=== PATIENT | female | born 1960 | race Caucasian/White ===

== ENCOUNTER → 2017-07-16 | Outpatient (CLI) | payer MEDICARE ==
[~2017-07-16] MED LIST: NORCO 325 MG-7.1 TAB PO; PEPCID 20MG TAB20 MG PO; PERCOCET 500 MG1 TAB PO; PHENERGAN 25 TA25 MG PO; PHENERGAN25 MG RC; acid reflux
== END ==
LOC: MC.RAD 14:50
DX: N63.10 Unspecified lump in the right breast, unspecified quadrant (principal)

== ENCOUNTER → 2017-07-22 | Outpatient (CLI) | payer MEDICARE | LOC: MC.RAD 07:30 | DX: N63.10 Unspecified lump in the right breast, unspecified quadrant (principal) ==

== ENCOUNTER → 2017-08-12 | Outpatient (CLI) | payer MEDICARE | LOC: MC.RAD 13:52 | DX: N64.4 Mastodynia (principal); C50.411 Malignant neoplasm of upper-outer quadrant of right female breast ==

== ENCOUNTER → 2017-08-20 | Outpatient (CLI) | payer MEDICARE ==
[~2017-08-20] MED LIST changes: +AMBIEN 10MG10 MG PO; +ASPIRIN 81M81 MG/TA2 PO; +COLACE 100100 MG/CAP PO; +CYMBALTA 60MG60 MG PO; +GLUCOPHAGE500 MG/TAB PO; +LATUDA60 MG PO; +MOTRIN 600600 MG/TAB PO; +PERCOCET 325 MG1 TA2 PO; +PRINIVIL2.5 MG PO; +PROZAC40 MG PO; +REQUIP0.25 MG PO
== END ==
LOC: COL.RAD 09:37
DX: C50.911 Malignant neoplasm of unspecified site of right female breast (principal)
CPT/HCPCS: A9541

== ENCOUNTER 2017-08-21 06:41 | Day surgery (SDC) | payer MEDICARE ==
[2017-08-21] VITALS (11 sets, daily range): BP systolic 118–179; BP diastolic 51–114; PULSE 78–101; TEMP 98–98.5
[~2017-08-21] VITALS: Ht 170.2 cm; Wt 117.2 kg
[~2017-08-21 06:41] MED LIST changes: -AMBIEN 10MG10 MG PO; -ASPIRIN 81M81 MG/TA2 PO; -COLACE 100100 MG/CAP PO; -CYMBALTA 60MG60 MG PO; -GLUCOPHAGE500 MG/TAB PO; -LATUDA60 MG PO; -MOTRIN 600600 MG/TAB PO; -PERCOCET 325 MG1 TA2 PO; -PRINIVIL2.5 MG PO; -PROZAC40 MG PO; -REQUIP0.25 MG PO
[2017-08-21] MEDS ORDERED: GLUCOPHAGE500 MG/TAB PO (08:04)
[2017-08-21] MEDS ORDERED: REQUIP0.25 MG PO (08:05)
[2017-08-21] MEDS ORDERED: ASPIRIN 81M81 MG/TA2 PO (08:06)
[2017-08-21] MEDS ORDERED: CYMBALTA 60MG60 MG PO (08:06)
[2017-08-21] MEDS ORDERED: PRINIVIL2.5 MG PO (08:06)
[2017-08-21] MEDS ORDERED: PROZAC40 MG PO (08:07)
[2017-08-21] MEDS ORDERED: LATUDA60 MG PO (08:07)
[2017-08-21] MEDS ORDERED: AMBIEN 10MG10 MG PO (08:07)
[2017-08-22 02:46] VITALS: BP 114/51; PULSE 73; TEMP 98.5
[2017-08-22 06:25] VITALS: BP 106/55; PULSE 70; TEMP 98.2
[2017-08-22 07:54] LABS: BASO # 0.1 (0.0-0.2); BASO % 0.4 % (0.0-2.0); EOS % 0.1 % (0-4.0); GRAN # 12.3 (1.4-6.5); GRAN % 79.6 % (42.2-75.2); HEMATOCRIT 39.9 % (37.0-47.0); HEMOGLOBIN 13.2 g/dl (12.5-16.0); LYMPH # 1.8 (1.2-3.4); LYMPH % 11.9 % (20.0-51.0); MEAN CELL VOLUME 94 fl (80.0-100.0); MEAN CORPUSCULAR HEMOGLOBIN 31 pg (27.0-31.0); MEAN CORPUSCULAR HGB CONC 33 g/dl (33.0-37.0); MEAN PLATELET VOLUME 11.6 fl (7.4-10.4); MONO # 1.2 (0.1-0.6); MONO % 7.7 % (1.7-9.3); PLATELET COUNT 221 K/mm3 (130-400); RED BLOOD COUNT 4.25 M/mm3 (4.10-5.30); WHITE BLOOD COUNT 15.4 K/mm3 (4.8-10.8)
[2017-08-22 08:07] LABS: ALBUMIN 3.6 gm/dL (3.5-5.0); CALCIUM 9.9 mg/dL (8.4-10.2); CREATININE, serum 0.82 mg/dL (0.52-1.25); PHOSPHOROUS 3.8 mg/dL (2.5-4.5); POTASSIUM 4.2 mmol/L (3.4-5.0)
[2017-08-22 10:27] VITALS: BP 107/57; PULSE 74; TEMP 98
[2017-08-22] MEDS ORDERED: COLACE 100100 MG/CAP PO (10:40)
[2017-08-22] MEDS ORDERED: PERCOCET 325 MG1 TA2 PO (10:40)
[2017-08-22] MEDS ORDERED: MOTRIN 600600 MG/TAB PO (10:41)
== END 2017-08-22 13:30 | disposition home or self-care (01) ==
LOC: SDCO 06:41 → SURG 16:45 → SDCO 08-22 13:30
PROVIDERS: Surgery
DX: C50.411 Malignant neoplasm of upper-outer quadrant of right female breast (principal); D05.11 Intraductal carcinoma in situ of right breast; Z17.0 Estrogen receptor positive status [ER+]; F17.210 Nicotine dependence, cigarettes, uncomplicated; F32.9 Major depressive disorder, single episode, unspecified; E16.1 Other hypoglycemia; G47.30 Sleep apnea, unspecified; I10 Essential (primary) hypertension; G25.81 Restless legs syndrome; Z79.82 Long term (current) use of aspirin; Z79.84 Long term (current) use of oral hypoglycemic drugs
CPT/HCPCS: OP; C1789; J0690; J1170; J2250; J2704; J3010; J7030; J7120

== ENCOUNTER 2018-07-23 05:41 | Day surgery (SDC) | payer MEDICARE ==
[~2018-07-23] VITALS: Ht 170.2 cm; Wt 113.2 kg
[~2018-07-23 05:41] MED LIST changes: +AMBIEN 10MG10 MG PO; +ASPIRIN 81M81 MG/TA2 PO; +COLACE 100100 MG/CAP PO; +CYMBALTA 60MG60 MG PO; +GLUCOPHAGE500 MG/TAB PO; +LATUDA60 MG PO; +MOTRIN 600600 MG/TAB PO; +PERCOCET 325 MG1 TA2 PO; +PRINIVIL2.5 MG PO; +PROZAC40 MG PO; +REQUIP0.25 MG PO
[2018-07-23] MEDS ORDERED: ARIMIDEX1 MG PO (06:08)
[2018-07-23] MEDS ORDERED: ALEVE 220MG220 MG PO (06:08)
[2018-07-23] MEDS ORDERED: PRIL40 PO (06:09)
[2018-07-23 06:24] VITALS: BP 129/66; PULSE 91; TEMP 98.5
[2018-07-23 09:27] VITALS: BP 95/49; PULSE 83; TEMP 97.4
[2018-07-23 09:42] VITALS: BP 106/62; PULSE 91
[2018-07-23] MEDS ORDERED: NORCO 325 MG-51 TAB PO (09:49)
[2018-07-23 09:57] VITALS: BP 97/58; PULSE 86
[2018-07-23 10:12] VITALS: BP 106/51; PULSE 85
== END 2018-07-23 10:31 | disposition home or self-care (01) ==
LOC: SDCO 05:41
DX: N64.1 Fat necrosis of breast (principal); N64.89 Other specified disorders of breast; Z85.3 Personal history of malignant neoplasm of breast; Z90.11 Acquired absence of right breast and nipple; Z79.899 Other long term (current) drug therapy; Z79.82 Long term (current) use of aspirin; G25.81 Restless legs syndrome; F32.9 Major depressive disorder, single episode, unspecified; G47.33 Obstructive sleep apnea (adult) (pediatric); I10 Essential (primary) hypertension; F17.210 Nicotine dependence, cigarettes, uncomplicated
CPT/HCPCS: C1789; J0690; J1170; J1885; J2405; J2704; J3010; J7030

== ENCOUNTER → 2018-10-29 | Day surgery (SDC) | payer MEDICARE ==
[~2018-10-29] VITALS: Ht 170.2 cm; Wt 116.3 kg
[~2018-10-29] MED LIST changes: +ALEVE 220MG220 MG PO; +ARIMIDEX1 MG PO; +NORCO 325 MG-51 TAB PO; +PRIL40 PO; +TUMS500 MG PO
[2018-10-29 06:21] VITALS: BP 140/77; PULSE 91; TEMP 98.3
--- NOTE | 2018-10-29 06:45 | NUR ---
WENT OVER MEDS WITH PATIENT. DOES NOT TAKE MEDS ON A ROUTINE BASES, DUE TO FORGETTING.
--- NOTE | 2018-10-29 06:48 | NUR ---
TO RM AT 0568- CALL LIGHT IN REACH NO ONE WITH PATIENT AT THIS TIME. (DOES NOT SPEAK MALTESE) AND SON WILL BE BACK LATER TO FABRICS AND MATERIAL CUTTER PATIENT
[2018-10-29 09:20] VITALS: BP 114/64; PULSE 80; TEMP 98.2
--- NOTE | 2018-10-29 09:20 | NUR ---
TO RM 8 PER CART FROM PACU. ALERT ORIENTED X3, TALKING TO AND SONS. DRESSING CLEAN DRY INTACT. C/O PAIN / AT CURRENT TIME O2 94% ON ROOM AIR.
[2018-10-29 09:30] VITALS: TEMP 98.2
[2018-10-29 09:35] VITALS: BP 107/56; PULSE 89
--- NOTE | 2018-10-29 09:35 | NUR ---
RECEIVED SPRITE AND LANRE REFUSED ANYTHING ELSE TO EAT. STATED SHE WANTED TO GO TO [facility] TO EAT.
[2018-10-29 09:50] VITALS: BP 93/64; PULSE 81
--- NOTE | 2018-10-29 09:50 | NUR ---
TABBY STATED THE PAIN IS ABOUT THE SAME DENIES N/V DISCONTINUED IV AND INT- CATHETER INTACT.
--- NOTE | 2018-10-29 10:00 | NUR ---
UP AMBULATED TO BATHROOM WITH MINIMAL ASSIST. VOIDED AND TOLERATED WELL. UPON RETURNING TO C/O PAIN 01/19- BUT STATED SHE DIDN'T NEED A ANY PAIN MEDS.
[2018-10-29 10:10] VITALS: BP 107/73; PULSE 100
--- NOTE | 2018-10-29 10:10 | NUR ---
RECEIVED DISCHARGE INSTRUCTIONS AND VERBALIZED UNDERSTANDING. PATIENT GETTING DRESSED AND DENIED ASSIST.
--- NOTE | 2018-10-29 10:20 | NUR ---
DISCHARGED PER WC BY NURSING STAFF TO PRIVATE CAR IN CARE OF AND SON.
== END ==
LOC: SDCO 05:38
DX: Z45.811 Encounter for adjustment or removal of right breast implant (principal); C50.911 Malignant neoplasm of unspecified site of right female breast; Z90.11 Acquired absence of right breast and nipple; K21.9 Gastro-esophageal reflux disease without esophagitis; I10 Essential (primary) hypertension; F17.210 Nicotine dependence, cigarettes, uncomplicated; F32.9 Major depressive disorder, single episode, unspecified; Z79.899 Other long term (current) drug therapy
CPT/HCPCS: J0330; J0690; J1100; J1170; J2250; J2704; J3010; J7120

== ENCOUNTER → 2019-04-21 | Outpatient (CLI) | payer MEDICARE | LOC: MC.RAD 15:54 | DX: Z12.31 Encounter for screening mammogram for malignant neoplasm of breast (principal); N63.21 Unspecified lump in the left breast, upper outer quadrant; Z90.11 Acquired absence of right breast and nipple; Z85.3 Personal history of malignant neoplasm of breast ==

== ENCOUNTER → 2019-04-27 | Outpatient (CLI) | payer MEDICARE | LOC: MC.RAD 14:30 | DX: N63.21 Unspecified lump in the left breast, upper outer quadrant (principal); Z85.3 Personal history of malignant neoplasm of breast ==

== ENCOUNTER → 2019-04-29 | Outpatient (CLI) | payer MEDICARE | LOC: MC.RAD 12:39 | DX: N63.21 Unspecified lump in the left breast, upper outer quadrant (principal); Z85.3 Personal history of malignant neoplasm of breast ==

== ENCOUNTER 2020-10-28 15:00 | Emergency (ER) | payer MEDICARE ==
[~2020-10-28] VITALS: Ht 162.6 cm; Wt 117.7 kg
[2020-10-28 15:06] VITALS: TEMP 99.8
[2020-10-28 15:21] VITALS: BP 117/73
[2020-10-28] MEDS ORDERED: MEDROL 4MG DOSPA4 MG PO (15:31)
[2020-10-28] MEDS ORDERED: LIDODERM 5% PATC1 EA TP (15:32)
[2020-10-28 16:24] VITALS: PULSE 76
== END 2020-10-28 16:24 | disposition home or self-care (01) ==
LOC: COL.ER 15:00
DX: M54.5 Low back pain (principal); G89.29 Other chronic pain; F32.9 Major depressive disorder, single episode, unspecified; F17.200 Nicotine dependence, unspecified, uncomplicated; Z91.013 Allergy to seafood; Z79.84 Long term (current) use of oral hypoglycemic drugs; Z79.82 Long term (current) use of aspirin
CPT/HCPCS: J7509

== ENCOUNTER 2020-11-09 18:05 | Emergency (ER) | payer MEDICARE ==
[~2020-11-09] VITALS: Ht 162.6 cm; Wt 117.7 kg
[~2020-11-09 18:05] MED LIST changes: +LIDODERM 5% PATC1 EA TP; +MEDROL 4MG DOSPA4 MG PO
[2020-11-09 18:14] VITALS: BP 147/86; TEMP 96.7
[2020-11-09] MEDS ORDERED: NEURONTIN100 MG/CAP PO (19:16)
[2020-11-09] MEDS ORDERED: MOBIC15 MG PO (19:16)
[2020-11-09] MEDS ORDERED: TYLENOL 325MG325 MG PO (19:55)
[2020-11-09] MEDS ORDERED: FLEXERIL 1010 MG/TAB PO (19:55)
[2020-11-09 20:29] VITALS: PULSE 115
== END 2020-11-09 20:30 | disposition home or self-care (01) ==
LOC: COL.ER 18:05
DX: M54.5 Low back pain (principal); C50.911 Malignant neoplasm of unspecified site of right female breast; I10 Essential (primary) hypertension; F17.210 Nicotine dependence, cigarettes, uncomplicated; Z79.82 Long term (current) use of aspirin; Z79.84 Long term (current) use of oral hypoglycemic drugs
CPT/HCPCS: J1885

== ENCOUNTER 2020-11-19 13:21 | Outpatient (CLI) | payer MEDICARE ==
[~2020-11-19] VITALS: Ht 162.6 cm; Wt 116.0 kg
[2020-11-19] VITALS (7 sets, daily range): BP systolic 11–167; BP diastolic 60–83; PULSE 72–85; TEMP 98.3
[~2020-11-19 13:21] MED LIST changes: +FLEXERIL 1010 MG/TAB PO; +MOBIC15 MG PO; +NEURONTIN100 MG/CAP PO; +TYLENOL 325MG325 MG PO
[2020-11-19] MEDS ORDERED: MOBIC15 MG PO (13:54)
[2020-11-19] MEDS ORDERED: NEURONTIN100 MG/CAP PO (13:54)
[2020-11-19] MEDS ORDERED: FLEXERIL5 MG PO (13:55)
[2020-11-19] MEDS ORDERED: AMBIEN 10MG10 MG PO (13:56)
[2020-11-19] MEDS ORDERED: REQUIP0.25 MG PO (13:56)
[2020-11-19] MEDS ORDERED: PEPCID40 MG PO (13:57)
--- NOTE | 2020-11-19 17:00 | NUR ---
Report from Ag HAWKINS. Transferred by bed from Radiology. Three bandaids to back CD&I. VSS. Pt denies pain at this time.
--- NOTE | 2020-11-19 18:15 | NUR ---
INT discontinued intact after sitting up on side of bed without pain. Getting up to bathroom pt started screaming and described pain like stabbing and muscles tightening in back, this nurse witnessed the spasms. Notified Dr. Hernandez and orders were given.
--- NOTE | 2020-11-19 18:35 | NUR ---
TWO 5/325 MG NORCO GIVEN PO. INSTRUCTIONS TO GO HOME AND TAKE MUSCLE RELAXANT PER DR. DEL TORO. REST AND CALL IN THE MORNING TO TALK TO DR. DEL TORO NURSE.
== END 2020-11-19 18:45 | disposition home or self-care (01) ==
LOC: COL.CAR 13:21
DX: M80.88XA Other osteoporosis with current pathological fracture, vertebra(e), initial encounter for fracture (principal); M54.5 Low back pain; I10 Essential (primary) hypertension; F17.210 Nicotine dependence, cigarettes, uncomplicated; Z20.822 Contact with and (suspected) exposure to COVID-19; Z90.49 Acquired absence of other specified parts of digestive tract; Z98.51 Tubal ligation status; Z90.11 Acquired absence of right breast and nipple; Z91.013 Allergy to seafood; Z79.82 Long term (current) use of aspirin; Z79.899 Other long term (current) drug therapy
CPT/HCPCS: J2250; J3010; J7120

== ENCOUNTER 2021-01-04 18:17 | Emergency (ER) | payer MEDICARE ==
[~2021-01-04] VITALS: Ht 165.1 cm; Wt 113.6 kg
[~2021-01-04 18:17] MED LIST changes: +FLEXERIL5 MG PO; +PEPCID40 MG PO
[2021-01-04 18:36] VITALS: TEMP 98.5
[2021-01-04 19:11] LABS: BASO # 0.1 (0.0-0.2); BASO % 0.6 % (0.0-2.0); EOS % 0.2 % (0-4.0); GRAN # 7.7 (1.4-6.5); GRAN % 70.6 % (42.2-75.2); HEMATOCRIT 45.2 % (37.0-47.0); HEMOGLOBIN 15.4 g/dl (12.5-16.0); LYMPH # 2.3 (1.2-3.4); LYMPH % 20.6 % (20.0-51.0); MEAN CELL VOLUME 91 fl (80.0-100.0); MEAN CORPUSCULAR HEMOGLOBIN 31 pg (27.0-31.0); MEAN CORPUSCULAR HGB CONC 34 g/dl (33.0-37.0); MEAN PLATELET VOLUME 10.5 fl (7.4-10.4); MONO # 0.8 (0.1-0.6); MONO % 7.7 % (1.7-9.3); PLATELET COUNT 271 K/mm3 (130-400); RED BLOOD COUNT 4.95 M/mm3 (4.10-5.30); REDCELL DISTRIBUTION WIDTH-CV 13.5 % (11.5-14.5)
[2021-01-04 19:21] LABS: ALBUMIN 4.2 gm/dL (3.5-5.0); BILIRUBIN,TOTAL 0.7 mg/dL (0.0-1.0); CALCIUM 10.8 mg/dL (8.4-10.2); CREATININE, serum 0.88 (0.52-1.25); POTASSIUM 3.9 mmol/L (3.4-5.0)
[2021-01-04 22:50] VITALS: BP 153/96; PULSE 91
== END 2021-01-04 22:50 | disposition home or self-care (01) ==
LOC: COL.ER 18:17
PROVIDERS: Physician Assistant
DX: R10.11 Right upper quadrant pain (principal); I10 Essential (primary) hypertension; G89.29 Other chronic pain; M54.5 Low back pain; F17.210 Nicotine dependence, cigarettes, uncomplicated; Z90.49 Acquired absence of other specified parts of digestive tract; Z79.82 Long term (current) use of aspirin; Z79.84 Long term (current) use of oral hypoglycemic drugs
CPT/HCPCS: J1885; J7030; Q9967

== ENCOUNTER 2021-07-03 12:09 | Emergency (ER) | payer MEDICARE ==
[~2021-07-03] VITALS: Ht 167.6 cm; Wt 118.2 kg
[2021-07-03 12:26] VITALS: TEMP 98.4
[2021-07-03 12:55] LABS: BASO # 0.1 (0.0-0.2); BASO % 0.9 % (0.0-2.0); EOS # 0.1 (0.0-0.7); EOS % 1.5 % (0-4.0); GRAN # 6.7 (1.4-6.5); GRAN % 72.1 % (42.2-75.2); HEMATOCRIT 45.5 % (37.0-47.0); HEMOGLOBIN 15.4 g/dl (12.5-16.0); LYMPH # 1.6 (1.2-3.4); LYMPH % 17.6 % (20.0-51.0); MEAN CELL VOLUME 92 fl (80.0-100.0); MEAN CORPUSCULAR HEMOGLOBIN 31 pg (27.0-31.0); MEAN CORPUSCULAR HGB CONC 34 g/dl (33.0-37.0); MEAN PLATELET VOLUME 10.8 fl (7.4-10.4); MONO # 0.7 (0.1-0.6); MONO % 7.6 % (1.7-9.3); PLATELET COUNT 188 K/mm3 (130-400); RED BLOOD COUNT 4.93 M/mm3 (4.10-5.30); REDCELL DISTRIBUTION WIDTH-CV 13.1 % (11.5-14.5)
[2021-07-03 13:07] LABS: ALBUMIN 4.4 gm/dL (3.5-5.0); C-REACTIVE PROTEIN 0.7 mg/dL (0.0-0.9); CALCIUM 10.8 mg/dL (8.4-10.2); CREATININE, serum 0.81 (0.52-1.25); POTASSIUM 4.3 mmol/L (3.4-5.0); TOTAL PROTEIN 7.9 gm/dL (6.4-8.2)
[2021-07-03 15:06] LABS: COLLECTION METHOD CLEAN CATCH
[2021-07-03 15:18] LABS: MUCOUS Present /lpf; PH 5 (5-8); SQUAMOUS EPITHELIAL 0-2 /hpf; URINE APPEARANCE Clear; URINE BACTERIA Rare /hpf; URINE BILIRUBIN Negative (NEGATIVE); URINE BLOOD 2+ (NEGATIVE); URINE COLOR Yellow; URINE GLUCOSE Negative (NEGATIVE); URINE KETONE Negative (NEGATIVE); URINE LEUKOCYTE ESTERASE 2+ (NEGATIVE); URINE NITRATE Negative (NEGATIVE); URINE PROTEIN(semi-quant) Negative (NEGATIVE); URINE UROBILINOGEN Negative (NEGATIVE)
[2021-07-03] MEDS ORDERED: NORCO 325 MG-7.1 TAB PO (15:54)
[2021-07-03] MEDS ORDERED: CEFTIN500 MG PO (15:55)
[2021-07-03] MEDS ORDERED: ZOFRAN ODT4 MG PO (15:56)
[2021-07-03 16:52] VITALS: BP 140/97; PULSE 83
== END 2021-07-03 16:54 | disposition home or self-care (01) ==
LOC: COL.ER 12:09
PROVIDERS: Physician Assistant
DX: N13.6 Pyonephrosis (principal); G89.29 Other chronic pain; M54.5 Low back pain; Z79.899 Other long term (current) drug therapy
CPT/HCPCS: J0696; J1885; J2270; J2405; J3010; J7030; Q9967

== ENCOUNTER → 2021-09-20 | Outpatient (CLI) | payer MEDICARE ==
[~2021-09-20] MED LIST changes: +CEFTIN500 MG PO; +ZOFRAN ODT4 MG PO
== END ==
LOC: MC.RAD 07-23 09:45
DX: C50.411 Malignant neoplasm of upper-outer quadrant of right female breast (principal); Z90.11 Acquired absence of right breast and nipple

== ENCOUNTER 2021-11-20 17:13 | Inpatient (IN) | payer MEDICARE ==
[~2021-11-20] VITALS: Ht 167.6 cm; Wt 120.1 kg
[2021-11-20 17:38] LABS: COLLECTION METHOD CLEAN CATCH
[2021-11-20 17:57] LABS: BASO # 0.1 K/mm3 (0.0-0.2); BASO % 0.4 % (0.0-2.0); EOS # 0.1 K/mm3 (0.0-0.7); EOS % 0.3 % (0.0-4.0); GRAN # 13.6 K/mm3 (1.4-6.5); GRAN % 87.4 % (42.2-75.2); HEMATOCRIT 47.6 % (37.0-47.0); HEMOGLOBIN 15.9 g/dl (12.5-16.0); LYMPH # 1.2 K/mm3 (1.2-3.4); LYMPH % 7.8 % (20.0-51.0); MEAN CELL VOLUME 94 fl (80.0-100.0); MEAN CORPUSCULAR HEMOGLOBIN 31 pg (27-31); MEAN CORPUSCULAR HGB CONC 33 g/dl (33.0-37.0); MEAN PLATELET VOLUME 11.2 fl (7.4-10.4); MONO # 0.6 K/mm3 (0.1-0.6); MONO % 3.7 % (1.7-9.3); PLATELET COUNT 239 K/mm3 (130-400); RED BLOOD COUNT 5.07 M/mm3 (4.10-5.30); REDCELL DISTRIBUTION WIDTH-CV 13.5 % (11.5-14.5)
[2021-11-20 18:00] LABS: MUCOUS Present (NOT PRESENT); SQUAMOUS EPITHELIAL 0-2 /hpf (0-10); URINE BACTERIA Occasional /hpf (NONE SEEN); URINE COLOR Yellow (YELLOW); URINE RBC >50 /hpf (0-2)
[2021-11-20 18:01] LABS: PH 5 (5-8); URINE APPEARANCE Hazy (CLEAR/HAZY); URINE BILIRUBIN Negative (NEGATIVE); URINE BLOOD 3+ (NEGATIVE); URINE GLUCOSE Negative (NEGATIVE); URINE KETONE Negative (NEGATIVE); URINE LEUKOCYTE ESTERASE 2+ (NEGATIVE); URINE NITRATE Negative (NEGATIVE); URINE PROTEIN(semi-quant) 1+ (NEGATIVE); URINE UROBILINOGEN Negative (NEGATIVE)
[2021-11-20 18:30] LABS: ALBUMIN 4.2 gm/dL (3.4-4.8); BILIRUBIN,TOTAL 1.3 mg/dL (0.2-1.2); C-REACTIVE PROTEIN 0.61 mg/dL (0.00-0.50); CALCIUM 10.7 mg/dL (8.4-10.2); CREATININE, serum 1.11 mg/dL (0.57-1.11); POTASSIUM 4.1 mmol/L (3.5-4.5); TOTAL PROTEIN 8.2 gm/dL (6.2-8.1)
[2021-11-20] MEDS ORDERED: PROTONIX 40MG T40 MG PO (20:33)
[2021-11-20] MEDS ORDERED: SEROQUEL 2525 MG/TAB PO (21:19)
[2021-11-20 21:36] VITALS: BP 149/89; PULSE 120; TEMP 98.2
--- NOTE | 2021-11-20 23:37 | NUR ---
patient to room 347. alert and oriented. ambulated to bed without issue. roughly 10 minutes after arrival to floor patient was in severe pain. x1 dose of morphine and toradol given at that time with no pain relief. call to dr. cohen and morphine meat puller ordered and started along with now dose of flomax. patient is now stating that her pain is relieved and under control. med rx and assessments completed. consent for surgery signed and in the chart. discussed being npo at midnight and patient agreeable.
[2021-11-21] VITALS (257 sets, daily range): BP systolic 73–145; BP diastolic 37–105; PULSE 76–92; TEMP 97.6–98.9; O2SAT 90–100
--- NOTE | 2021-11-21 00:36 | NUR ---
informed by staff mine warfare officer that pressures were low, 80s/40s. call to dr. cohen and strategic planning consultant changed to level 1 and order for IV NS bolus. fluids started, will recheck pressures in 1 hour. patient is alert and oriented but drowsy. denies pain or pain control needs. discussed with patient the plan of care/changes. patient agreeable.
--- NOTE | 2021-11-21 01:38 | NUR ---
BOLUS OF FLUIDS FINISHED AT THIS TIME AND BP WAS 91/43. PATIENT O2 SATS 88% AND STARTED ON 2 L O2 VIA NC, NOW AT 93%. CALL TO DR. WEBBER WHO IS OKAY WITH BP WHERE IT IS, ORDER TO CONTINUE MAINTENANCE FLUIDS AT THIS TIME AND NO OTHER CHANGES.
--- NOTE | 2021-11-21 03:29 | NUR ---
MORNING VITALS BP WAS 70s/40s. CALL PLACED TO DR. WEBBER AND ORDER FOR BOLUS LITER OF NS AND IV LEVAQUIN. BOLUS INFUSING NOW, AWAITING PHARMACY VERIFICATION FOR LEVAQUIN ORDER. PATIENT RESTING IN BED. DENIES PAIN, DENIES SOB AND NAUSEA. LUNGS CLEAR TO AUSCULTATION.
--- NOTE | 2021-11-21 04:47 | NUR ---
BP RECHECK 84/51. AWAITING LEVAQUIN TO FINISH.
--- NOTE | 2021-11-21 06:32 | NUR ---
CALL TO DR. WEBBER AND HOSPITALIST CONSULT ORDERED. CALL TO DR. LEO AND X1 L OF LR BOLUS ORDERED AND STARTED. ORDER TO TX PATIENT TO ICU. PATIENT WILL TRANSFER TO ICU BED 2 DURING DAY SHIFT. DISCUSSED WITH PATIENT WHO IS AGREEABLE BUT WORRIED. C/O MILD PAIN AND ENCOURAGED TO PUSH SYSTEMS PROTECTION TECHNICIAN BUTTON X1.
--- NOTE | 2021-11-21 07:05 | NUR ---
RECEIVED REPORT FROM SHRUTHI ALEXANDER ON SURGICAL. PER REPORT, PT WAS JUST TAKEN TO THE OR. AWAITING ARRIVAL OF PT TO ICU 2.
--- NOTE | 2021-11-21 08:22 | NUR ---
RECEIVED REPORT FROM SHRUTHI BUCHANAN IN PACU. AWAITING ARRIVAL TO ICU 2.
--- NOTE | 2021-11-21 08:35 | NUR ---
PT ARRIVES TO ICU 2 VIA BED. PT ON 2L VIA NC. PLACED ON BEDSIDE CONTINUOUS MONITOR. CALL LIGHT WITHIN REACH. FC PATENT AND DRAINING TO GRAVITY, PEACH CLEAR COLORED URINE NOTED AT THIS TIME. PT C/O BURNING SENSATION IN THE BLADDER AREA. SEE MAR. PT'S SBP IN THE 90s AND WILL MONITOR CLOSELY. PT UPDATED ON POC, VERBALIZED UNDERSTANDING.
[2021-11-21 09:56] LABS: HEMATOCRIT 39.5 % (37.0-47.0); MEAN CELL VOLUME 96 fl (80.0-100.0); MEAN CORPUSCULAR HEMOGLOBIN 31 pg (27-31); MEAN CORPUSCULAR HGB CONC 33 g/dl (33.0-37.0); MEAN PLATELET VOLUME 11.2 fl (7.4-10.4); PLATELET COUNT 175 K/mm3 (130-400); RED BLOOD COUNT 4.11 M/mm3 (4.10-5.30); REDCELL DISTRIBUTION WIDTH-CV 13.8 % (11.5-14.5)
[2021-11-21 10:00] LABS: HEMOGLOBIN 12.9 g/dl (12.5-16.0)
[2021-11-21 10:08] LABS: CALCIUM 8.3 mg/dL (8.4-10.2); CREATININE, serum 1.5 mg/dL (0.57-1.11); POTASSIUM 5.3 mmol/L (3.5-4.5)
--- NOTE | 2021-11-21 10:53 | NUR ---
diversified crops ii farmworker met with patient to complete intake. Patient lives at home in [place] with her Tim, but reports that Tim does not speak mohawk. Patient reports that she is fully independent with her ADL's and uses a walker to assist with ambulation. Patient does not utilize any oxygen at home. PCP is Dr. Aguilera and she utilizes [facility] pharmacy with no cost difficulty. Patient does not have a DPOA-HC and does not wish to establish one at this time. Education provided and patient verbalizes her understanding.
--- NOTE | 2021-11-21 11:54 | NUR ---
Chemo precautions sign placed on door and notified primary nurse: double chemo gloved required for handling feces; ongoing or 10 days after last administration. Gown and face protection to be worn if splash risk present.
--- NOTE | 2021-11-21 20:04 | NUR ---
PM ASSESSMENT COMPLETE. PT DENIES PAIN OR N/V. PUPILS NONEQUAL, PT REPORTS HAVING CATARACTS. ROBLERO DRAINING PEACH COLORED URINE, NO CLOTS NOTED. LEVOPHED INFUSING TO MK PICC LINE, WILL CONTINUE TO TITRATE ORDERED. CALL LIGHT IN REACH. PT STATES NO QUESTIONS OR CONCERNS. WILL CONTINUE TO MONITOR.
[2021-11-22] VITALS (880 sets, daily range): BP systolic 86–110; BP diastolic 61–80; PULSE 68–81; TEMP 97.4–98.2; O2SAT 77–100
--- NOTE | 2021-11-22 00:24 | NUR ---
PT HAS BEEN HAVING BOUTS OF LEFT FLANK PAIN RADIATING AROUND SIDE TO ABDOMEN. MORPHINE GIVEN TWICE THIS EVENING PER PRN ORDER, WELL ONE PERCOCET. BLOOD PRESSURE MAINTAINING WITH LEVOPHED AT 0.04MCG/KG/MIN. PT TOLERATING PO, DRINKING WATER. PLACED ON O2 AT 2L VIA NC SATURATION 90% WHILE SLEEPING. WILL CONTINUE TO MONITOR.
[2021-11-22 05:15] LABS: BASO % 0.3 % (0.0-2.0); EOS % 0.1 % (0.0-4.0); GRAN # 12.9 K/mm3 (1.4-6.5); GRAN % 89.5 % (42.2-75.2); HEMATOCRIT 38.6 % (37.0-47.0); HEMOGLOBIN 12.4 g/dl (12.5-16.0); LYMPH # 0.6 K/mm3 (1.2-3.4); LYMPH % 4.2 % (20.0-51.0); MEAN CELL VOLUME 96 fl (80.0-100.0); MEAN CORPUSCULAR HEMOGLOBIN 31 pg (27-31); MEAN CORPUSCULAR HGB CONC 32 g/dl (33.0-37.0); MONO # 0.8 K/mm3 (0.1-0.6); MONO % 5.2 % (1.7-9.3); PLATELET COUNT 139 K/mm3 (130-400); RED BLOOD COUNT 4.04 M/mm3 (4.10-5.30); REDCELL DISTRIBUTION WIDTH-CV 13.6 % (11.5-14.5)
[2021-11-22 05:37] LABS: CALCIUM 8.3 mg/dL (8.4-10.2); CREATININE, serum 0.99 mg/dL (0.57-1.11)
--- NOTE | 2021-11-22 07:00 | NUR ---
RECEIEVED REPORT FROM SHRUTHI HOLLINS. PT SLEEPING IN BED ON 2L VIA NC. VSS. CALL LIGHT WITHIN REACH. FC PATENT AND DRAINING TO GRAVITY. SEE GTT FLOWSHEET.
[2021-11-23] VITALS (378 sets, daily range): BP systolic 105–128; BP diastolic 71–90; PULSE 68–78; TEMP 97.8–98.3; O2SAT 84–99
--- NOTE | 2021-11-23 | NUR ---
PATIENT RESTING COMFORTABLY AFTER PAIN MEDS GIVEN AT WITH OTHER HS MEDS. SHE CONTINUES TO BE OFF LEVOPHED AND HAVE STABLE BP'S
--- NOTE | 2021-11-23 05:30 | NUR ---
PATIENT REQUESTS PYRIDIUM TO HELP WITH DISCOMFORT. THIS IS GIVEN ALONG WITH PROTONIX. SHE HAS NO OTHER COMPLAINTS/REQUESTS. WILL CONTINUE TO MONITOR.
[2021-11-23 05:49] LABS: BASO % 0.3 % (0.0-2.0); EOS # 0.1 K/mm3 (0.0-0.7); EOS % 0.5 % (0.0-4.0); GRAN # 8.4 K/mm3 (1.4-6.5); GRAN % 83.7 % (42.2-75.2); HEMOGLOBIN 12.3 g/dl (12.5-16.0); LYMPH # 0.9 K/mm3 (1.2-3.4); LYMPH % 8.7 % (20.0-51.0); MEAN CELL VOLUME 94 fl (80.0-100.0); MEAN CORPUSCULAR HEMOGLOBIN 31 pg (27-31); MEAN CORPUSCULAR HGB CONC 33 g/dl (33.0-37.0); MEAN PLATELET VOLUME 11.8 fl (7.4-10.4); MONO # 0.6 K/mm3 (0.1-0.6); MONO % 6.3 % (1.7-9.3); PLATELET COUNT 137 K/mm3 (130-400); RED BLOOD COUNT 3.93 M/mm3 (4.10-5.30); REDCELL DISTRIBUTION WIDTH-CV 13.3 % (11.5-14.5)
[2021-11-23 05:53] LABS: HEMATOCRIT 36.9 % (37.0-47.0)
[2021-11-23 06:23] LABS: CALCIUM 9.3 mg/dL (8.4-10.2); CREATININE, serum 0.75 mg/dL (0.57-1.11); POTASSIUM 4.4 mmol/L (3.5-4.5)
--- NOTE | 2021-11-23 07:00 | NUR ---
RECEIVED REPORT FROM SHRUTHI PETERSON. PT SLEEPING ON RA. VSS. CALL LIGHT WITHIN REACH. FC PATENT AND DRAINING TO GRAVITY.
[2021-11-23] MEDS ORDERED: NORCO 325 MG-51 TAB PO (13:11)
[2021-11-23] MEDS ORDERED: AMOXICILLIN 8751 TAB PO (13:11)
[2021-11-23] MEDS ORDERED: PYRIDIUM 100MG100 MG PO (13:11)
== END 2021-11-23 14:34 | disposition home or self-care (01) | DRG 853 ==
LOC: COL.ER 17:13 → SURG 19:39 → ICU 11-21 07:29
PROVIDERS: Internal Medicine; Nurse Practitioner Primary Care; ADMIT Urology
PROC: 0T778DZ Dilation of Left Ureter with Intraluminal Device, Via Natural or Artificial Opening Endoscopic (ICD-10-PCS; principal; 2021-11-21 07:30)
PROC: BT1F1ZZ Fluoroscopy of Left Kidney, Ureter and Bladder using Low Osmolar Contrast (ICD-10-PCS; 2021-11-21 07:30)
PROC: 02HV33Z Insertion of Infusion Device into Superior Vena Cava, Percutaneous Approach (ICD-10-PCS; 2021-11-21 07:30)
DX: A41.9 Sepsis, unspecified organism (principal); R65.21 Severe sepsis with septic shock; N13.6 Pyonephrosis; E87.2 Acidosis; E11.9 Type 2 diabetes mellitus without complications; F32.A Depression, unspecified; F41.9 Anxiety disorder, unspecified; I10 Essential (primary) hypertension; G89.29 Other chronic pain; M54.9 Dorsalgia, unspecified; K21.9 Gastro-esophageal reflux disease without esophagitis; G25.81 Restless legs syndrome; M81.0 Age-related osteoporosis without current pathological fracture; M17.0 Bilateral primary osteoarthritis of knee; E83.52 Hypercalcemia; Z87.442 Personal history of urinary calculi; Z85.3 Personal history of malignant neoplasm of breast; Z79.84 Long term (current) use of oral hypoglycemic drugs; Z79.82 Long term (current) use of aspirin
CPT/HCPCS: 99222; 99231-AI; 99232-AI; A4314; C1751; C1769; C2617; G0378; J0696; J1885; J1956; J2270; J2405; J2543; J2704; J3010; J7030; J7060; J7120; Q9967

== ENCOUNTER 2021-12-10 08:51 | Day surgery (SDC) | payer MEDICARE ==
[~2021-12-10] VITALS: Ht 167.6 cm; Wt 112.4 kg
[~2021-12-10 08:51] MED LIST changes: +AMOXICILLIN 8751 TAB PO; +PROTONIX 40MG T40 MG PO; +PYRIDIUM 100MG100 MG PO; +SEROQUEL 2525 MG/TAB PO
[2021-12-10] MEDS ORDERED: AZO URINARY PAI95 MG PO (09:58)
[2021-12-10 10:00] VITALS: BP 133/91; PULSE 101; TEMP 97.7
[2021-12-10] MEDS ORDERED: NORCO 325 MG-51 TAB PO (11:03)
[2021-12-10] MEDS ORDERED: FLOMAX 0.40.4 MG/CAP PO (11:03)
[2021-12-10 12:00] VITALS: BP 124/65; PULSE 73; TEMP 97.9
[2021-12-10 12:11] VITALS: TEMP 98
[2021-12-10 12:15] VITALS: BP 12/80; BP 128/80
[2021-12-10 12:30] VITALS: BP 112/72; PULSE 73
--- NOTE | 2021-12-10 14:10 | NUR ---
1200 PT RETURNED TO BAY 1 VIA CART. ALERT AND ORIENTED. POST OP VITALS STARTED. TOLERATING ICE CHIPS WELL. JELLO AND WATER PROVIDED. 1215 PT TOLERATING FOOD AND DRINK WELL. VSS. 1230 PT UP TO BATHROOM, ABLE TO VOID A SMALL AMOUNT OF URINE. 1350 IV REMOVED WITHOUT COMPLICATION. REVIEWED DISCHARGE INSTRUCTIONS AND EDUCATION MATERIAL, ANSWERED ALL QUESTION AND PT VERBALIZED UNDERSTANDING. REVIEWED SIGNS AND SYMPTOMS OF INFECTION, PT REPORTS DR SAID SHE DOES NOT NEED TO BE SENT HOME ON ANTIBIOTICS. ALLOWED PT TO DRESS. 1410 TRANSFERED PT VIA WHEELCHAIR TO PERSONAL VEHICLE TO BE DRIVEN HOME BY .
== END 2021-12-10 14:10 | disposition home or self-care (01) ==
LOC: SDCO 08:51
DX: N20.1 Calculus of ureter (principal); R82.81 Pyuria; F17.210 Nicotine dependence, cigarettes, uncomplicated; Z85.3 Personal history of malignant neoplasm of breast; Z92.21 Personal history of antineoplastic chemotherapy
CPT/HCPCS: C1769; C1894; C2617; J0690; J1100; J1170; J1885; J2405; J2704; J3010; J7120

== ENCOUNTER 2022-12-26 09:28 | Inpatient (IN) | payer MEDICARE ==
[~2022-12-26] VITALS: Ht 165.1 cm; Wt 118.0 kg
[~2022-12-26 09:28] MED LIST changes: +AZO URINARY PAI95 MG PO; +FLOMAX 0.40.4 MG/CAP PO
[2022-12-26 10:47] LABS: BASO # 0.1 K/mm3 (0.0-0.2); BASO % 0.4 % (0.0-2.0); GRAN # 15.9 K/mm3 (1.4-6.5); GRAN % 85.9 % (42.2-75.2); HEMOGLOBIN 15.8 g/dl (12.5-16.0); LYMPH # 1.1 K/mm3 (1.2-3.4); MEAN CELL VOLUME 91 fl (80.0-100.0); MEAN CORPUSCULAR HEMOGLOBIN 32 pg (27-31); MEAN CORPUSCULAR HGB CONC 35 g/dl (33.0-37.0); MEAN PLATELET VOLUME 10.7 fl (7.4-10.4); MONO # 1.3 K/mm3 (0.1-0.6); MONO % 7.2 % (1.7-9.3); PLATELET COUNT 235 K/mm3 (130-400); RED BLOOD COUNT 4.94 M/mm3 (4.10-5.30); REDCELL DISTRIBUTION WIDTH-CV 12.9 % (11.5-14.5)
[2022-12-26 11:11] LABS: ALBUMIN 3.7 gm/dL (3.4-4.8); CALCIUM 10.5 mg/dL (8.4-10.2); CREATININE, serum 1.15 mg/dL (0.57-1.11); POTASSIUM 4.2 mmol/L (3.5-4.5); TOTAL PROTEIN 7.5 gm/dL (6.2-8.1)
[2022-12-26 11:35] LABS: COLLECTION METHOD CLEAN CATCH
[2022-12-26 11:42] LABS: MUCOUS Present (NOT PRESENT); SQUAMOUS EPITHELIAL 0-2 /hpf (0-10); URINE BACTERIA Moderate /hpf (NONE SEEN)
[2022-12-26 11:44] LABS: URINE COLOR Yellow (YELLOW)
[2022-12-26 11:45] LABS: PH 6.5 (5.0-8.5); URINE APPEARANCE Cloudy (CLEAR/HAZY); URINE BLOOD 2+ (NEGATIVE); URINE GLUCOSE Negative (NEGATIVE); URINE KETONE 1+ (NEGATIVE); URINE NITRATE Positive (NEGATIVE); URINE PROTEIN(semi-quant) 2+ (NEGATIVE)
--- NOTE | 2022-12-26 17:30 | NUR ---
Patient arrived to the unit by wheelchair, alert and oriented x4, VSS. States pain is 4/10. Assessment intake completed.
[2022-12-26 17:50] VITALS: BP 100/49; PULSE 96; TEMP 98.4
--- NOTE | 2022-12-26 18:54 | NUR ---
Patient states her pain is right now 11/21. Report given to night RN.
[2022-12-26 19:31] VITALS: BP 100/48; PULSE 94; TEMP 99.1
--- NOTE | 2022-12-26 21:11 | NUR ---
PT REPORTS THAT SHE WEARS A CPAP AT HOME BUT DOES NOT WEAR ANY OXYGEN. ASKED PT IF SHE HAD BROUGHT HER HOME UNIT. SHE SAID NO. ASKED AND EDUCATED ABOUT HOSPITAL OWNED CPAP UNITS. PT STATED SHE DOES NOT WANT TO USE THE HOSPITALS MACHINE AND WOULD BE FINE WITHOUT. EDUCATED PT THAT WE WOULD BE ABLE TO PLACE ON O2 FOR THE NIGHT IF SHE NEEDED. PT VERBALIZED UNDERSTANDING.
[2022-12-26 23:35] VITALS: BP 112/47; PULSE 117; TEMP 98.1
[2022-12-27] VITALS (11 sets, daily range): BP systolic 88–108; BP diastolic 40–63; PULSE 70–93; TEMP 97.6–98.8
[2022-12-27 06:24] LABS: BASO # 0.1 K/mm3 (0.0-0.2); BASO % 0.3 % (0.0-2.0); EOS # 0.2 K/mm3 (0.0-0.7); EOS % 1.1 % (0.0-4.0); GRAN % 85.1 % (42.2-75.2); LYMPH # 1.1 K/mm3 (1.2-3.4); LYMPH % 5.9 % (20.0-51.0); MEAN CELL VOLUME 94 fl (80.0-100.0); MEAN CORPUSCULAR HEMOGLOBIN 32 pg (27-31); MEAN CORPUSCULAR HGB CONC 34 g/dl (33.0-37.0); MEAN PLATELET VOLUME 11.3 fl (7.4-10.4); MONO # 1.3 K/mm3 (0.1-0.6); PLATELET COUNT 174 K/mm3 (130-400); RED BLOOD COUNT 3.93 M/mm3 (4.10-5.30)
[2022-12-27 06:28] LABS: HEMOGLOBIN 12.4 g/dl (12.5-16.0)
[2022-12-27 06:51] LABS: ALBUMIN 2.4 gm/dL (3.4-4.8); CALCIUM 8.4 mg/dL (8.4-10.2); CREATININE, serum 1.18 mg/dL (0.57-1.11); MAGNESIUM 1.6 mg/dL (1.6-2.6); PHOSPHOROUS 2.4 mg/dL (2.3-4.7); POTASSIUM 3.9 mmol/L (3.5-4.5)
--- NOTE | 2022-12-27 08:04 | NUR ---
Patient is getting out from restroom, alert and oriented x 4, VSS, States pain 8/10, prn provided. Assessment completed, NS running at 125 ml/hr. Call light within reach.
--- NOTE | 2022-12-27 10:49 | NUR ---
Call placed to dr Toth for consult, he will come to check pt in the afternoon, ordered keep pt NPO.
--- NOTE | 2022-12-27 11:00 | NUR ---
Patient states pain 10/10, prn morphine provided.
--- NOTE | 2022-12-27 17:56 | NUR ---
Patient has been stable after procedure, soft BP, denies pain since she came back, tolerating foods. Report will be given to night RN.
[2022-12-28] VITALS (7 sets, daily range): BP systolic 96–112; BP diastolic 53–71; PULSE 60–82; TEMP 97.7–98.5
[2022-12-28 06:49] LABS: HEMOGLOBIN 12.1 g/dl (12.5-16.0); MEAN CELL VOLUME 94 fl (80.0-100.0); MEAN CORPUSCULAR HEMOGLOBIN 31 pg (27-31); MEAN CORPUSCULAR HGB CONC 33 g/dl (33.0-37.0); MEAN PLATELET VOLUME 11.7 fl (7.4-10.4); PLATELET COUNT 164 K/mm3 (130-400); REDCELL DISTRIBUTION WIDTH-CV 13.1 % (11.5-14.5)
[2022-12-28 06:56] LABS: HEMATOCRIT 36.7 % (37.0-47.0)
[2022-12-28 07:06] LABS: ALBUMIN 2.2 gm/dL (3.4-4.8); CALCIUM 8.4 mg/dL (8.4-10.2); CREATININE, serum 0.99 mg/dL (0.57-1.11); MAGNESIUM 1.8 mg/dL (1.6-2.6); PHOSPHOROUS 1.2 mg/dL (2.3-4.7); POTASSIUM 4.3 mmol/L (3.5-4.5)
[2022-12-28 08:17] LABS: BAND 10 % (0-10); LYMPHOCYTE 4 % (20.0-51.0); METAMYELOCYTE 1 % (0-0); NEUTROPHILS 78 % (42.0-75.2); PLATELET ESTIMATE NORMAL (NORMAL)
--- NOTE | 2022-12-28 08:42 | NUR ---
Patient is resting in bed, alrt and oriented x 4, VSS, denies any pain at this time. No heart issues reported. NS and antibiotics on hold, difficult IV access. Assessment completed, NPO per orders. No further needs at this time. Call light within reach.
--- NOTE | 2022-12-28 13:34 | NUR ---
Patient continues complaining of burning while urinating. PRN provided.
[2022-12-29] MEDS ORDERED: KLONOPIN 0.5MG0.5 MG PO (00:29)
--- NOTE | 2022-12-29 03:47 | NUR ---
PATIENT HAD #2 PAIN PRESENT AND NORCO PAIN WAS 0 UPON RECHACK. PT STATES SHE WILL BE LEAVING TOMORROW WITH OR WITHOUT ORDERS AND IS PREPARED TO SIGN AMA FORM. PT STATES SHE WOULD LIKE TO FINISH TREATING INFECTION AT HOME WITH ANTIBIOTICS FOR MORE COMFORT BEING IN HER HOME. THEN WILL PLAN TO DO URGERY FOR KIDNEY STONE OUTPATIENT ONCE INFETION CLEARS. PT ALSO STATES SHE HAS DONE THIS BEFORE FOR THE LAST STONE SHE HAD. OTHERWISE PTS HOME AMBIAN WAS RESTARTED TO HELP SLEEP. PT THEN WAS ABLE TO REST COMFORABLY IN LOW BED WITH CALL LIGHT WITHIN REACH.
[2022-12-29 04:04] VITALS: BP 102/59; PULSE 60; TEMP 98.3
--- NOTE | 2022-12-29 07:00 | NUR ---
PT RESTING IN BED. PT HAS IVF RUNNING. VSS. PT HAS CALL LIGHT AND INSTRUCTED TO CALL WITH ALL NEEDS.
[2022-12-29 07:08] VITALS: BP 136/84; PULSE 83; TEMP 97.7
[2022-12-29] MEDS ORDERED: AZO URINARY PAI95 MG PO (09:26)
[2022-12-29] MEDS ORDERED: AMOXICILLIN 8751 TAB PO (09:27)
--- NOTE | 2022-12-29 10:36 | NUR ---
IV AND TELE DCD. DISCHARGE INSTRUCTIONS DISCUSSED WITH PT. PT TO FOLLOW UP WITH UROLOGY. ALL QUESTIONS ANSWERED. PT ACCOMPANINED OUT WITH WES GONSALES.
== END 2022-12-29 10:36 | disposition home or self-care (01) | DRG 854 ==
LOC: COL.ER 09:28 → MEDICAL 13:22
PROVIDERS: Physician Assistant; Urology; ADMIT Internal Medicine
PROC: 0T768DZ Dilation of Right Ureter with Intraluminal Device, Via Natural or Artificial Opening Endoscopic (ICD-10-PCS; principal; 2022-12-27 13:30)
PROC: BT1D1ZZ Fluoroscopy of Right Kidney, Ureter and Bladder using Low Osmolar Contrast (ICD-10-PCS; 2022-12-27 13:30)
DX: A41.59 Other Gram-negative sepsis (principal); N13.6 Pyonephrosis; N17.9 Acute kidney failure, unspecified; E83.52 Hypercalcemia; F32.A Depression, unspecified; I10 Essential (primary) hypertension; F17.210 Nicotine dependence, cigarettes, uncomplicated; G25.81 Restless legs syndrome; J44.9 Chronic obstructive pulmonary disease, unspecified; M19.90 Unspecified osteoarthritis, unspecified site; G47.33 Obstructive sleep apnea (adult) (pediatric); Z90.49 Acquired absence of other specified parts of digestive tract; Z90.11 Acquired absence of right breast and nipple; Z79.899 Other long term (current) drug therapy; Z85.3 Personal history of malignant neoplasm of breast
CPT/HCPCS: C1769; C2617; J0690; J1170; J2270; J2405; J2543; J2704; J7030; Q9967